=== PATIENT | female | born 1955 | race Two or more races ===

== ENCOUNTER 2016-09-08 05:54 | Emergency (ER) | payer OTHER ==
[2016-09-08] MEDS ORDERED: IOPAMIDOL 300 (61%) 100 ML VIAL IV ONE (05:55)
[2016-09-08 06:25] LABS: SPECIFIC GRAVITY 1.025 (1.001-1.030); URINE BILIRUBIN NEGATIVE (NEGATIVE); URINE BLOOD 1+ (NEGATIVE); URINE GLUCOSE (UA) NEGATIVE (NEGATIVE); URINE LEUKOCYTE ESTERASE NEGATIVE (NEGATIVE); URINE NITRITE NEGATIVE (NEGATIVE); URINE PROTEIN NEGATIVE (NEGATIVE); URINE UROBILINOGEN NORMAL (0-1 mg/dl)
[2016-09-08 06:31] LABS: URINE APPEARANCE CLEAR; URINE COLOR YELLOW
[2016-09-08 06:35] LABS: URINE BACTERIA 0; URINE MUCUS 1+; URINE WBC 0-2 /hpf
[2016-09-08] MEDS ORDERED: LACTATED RINGERS 1,000 ML ONE (06:39)
[2016-09-08] MEDS ORDERED: PANTOPRAZOLE SODIUM 40 MG VIAL IV ONE (06:39)
[2016-09-08] MEDS ORDERED: ONDANSETRON 4 MG/2ML 2 ML VIAL ONE (06:39)
[2016-09-08 06:56] LABS: ABSOLUTE NEUTROPHIL COUNT 4.7 K/mm3 (1.8-7.7); BASO % 0.3 % (0.2-1.0); EOS # 0.1 (0.0-0.5); EOS % 1.3 % (0.9-2.9); HEMATOCRIT 39.9 % (37.0-47.0); HEMOGLOBIN 12.8 gm/l (12.0-16.0); IMM NEUT% 0.3 % (0-1); LYMPH # 2.4 (1.0-4.8); LYMPH % 31.5 % (15-45); MEAN CELL VOLUME 90.9 fl (81.0-99.0); MEAN CORPUSCULAR HEMOGLOBIN 29.2 pg (27.0-31.0); MEAN CORPUSCULAR HGB CONC 32.1 g/dl (33.0-37.0); MEAN PLATELET VOLUME 10.2 fl (7.4-10.4); MONO # 0.4 (0.0-0.8); MONO % 5.4 % (4-12); NEUT % 61.2 % (43-75); PLATELET COUNT 271 K/mm3 (130-400); RED CELL DISTRIBUTION WIDTH 13.8 % (11.5-14.5)
[2016-09-08 07:14] LABS: ALB/GLOB RATIO 1.4 (>1.0); ALBUMIN 4.3 gm/dL (3.5-5.7); CALCIUM 9.3 mg/dL (8.6-10.3); MAGNESIUM 1.9 mg/dL (1.9-2.7)
--- NOTE | 2016-09-08 07:57 | CT ---
Exam Type: ABD/PELVIS W/ CON Date and Time: 09/08/2016 7:07 AM Clinical information: Diarrhea and abdominal pain Comparison: Acute abdominal series 09/08/2016 Technique: Contiguous axial 4 mm images were obtained from the lung bases through the pelvis after the uneventful IV administration of 100 cc of [id number]. Sagittal and coronal reformations with high resolution lung algorithm images were also obtained at this time. CT DI: 11.4 DLP 546.8 FINDINGS: Lung base :No abnormality is identified at the lung bases. Visualized heart:There is no pericardial effusion. LIVER: Mild diffuse fatty infiltration is present. 2 small to characterize multiple hypodensities are scattered throughout the liver. BILE DUCTS: normal caliber. GALLBLADDER: No calcified gallstones. Normal caliber wall. PANCREAS: within normal limits. SPLEEN: within normal limits. ADRENALS: within normal limits. KIDNEYS: within normal limits. Stomach and small BOWEL: Normal caliber. Large bowel: Air, fluid and stool are present within the large bowel compatible with the history of diarrhea. Appendix is normal. Portions of the distal large bowel are decompressed limiting assessment. LYMPH NODES: No enlarged mesenteric lymph nodes. PERITONEUM: no ascites or free air, no fluid collection. VESSELS: within normal limits RETROPERITONEUM: within normal limits. ABDOMINAL WALL: within normal limits. Bladder: Normal Uterus and adnexa: Present. Dilated vessels are identified along the left uterus and adnexa which may relate to pelvic congestion syndrome and correlation is recommended. BONES: Slight grade 1 anterolisthesis of L5 on S1. No lytic or splenic lesions. IMPRESSION: Findings compatible with a history of diarrhea. Otherwise no acute inflammatory process is noted within the abdomen or pelvis. Close clinical and radiographic opportunity. Other incidental findings as above. Findings were called to Dr. Jones at approximately 0 753 hours on 09/08/2016.
--- NOTE | 2016-09-08 08:02 | RAD ---
ABDOMEN 2 VIEWS W PA CHEST HISTORY: Pain, bloating and diarrhea. COMPARISONS: CT abdomen pelvis 01/22/2016 FINDINGS: PA of the chest with upright and supine views of the abdomen are obtained. Lungs are clear without effusion or pneumothorax. Cardiomediastinal silhouette is unremarkable. No plain film evidence of intraperitoneal free air. Scattered air-fluid levels are present throughout the large bowel. There is an overall paucity of small bowel gas. Bowel gas pattern is otherwise nonspecific and nonobstructive. Multiple phleboliths are seen in the pelvis. Osseous structures are intact. IMPRESSION: No acute intrathoracic process. Nonspecific, nonobstructive bowel gas pattern with air fluid levels in the large bowel compatible with the patient's history of diarrhea. CT is to follow.
== END 2016-09-08 10:56 | disposition home or self-care (01) ==
LOC: ED 05:54
DX: R11.2 Nausea with vomiting, unspecified (principal); R19.7 Diarrhea, unspecified; I10 Essential (primary) hypertension
CPT/HCPCS: 83690; 85025; 80053; 83735; 84484; 81001; 74022; 74177; 96375; 99284; 96374; 96361 ×4; 93005; 99283; C9113; J2405; J7120; Q9967